=== PATIENT | female | born 1970 | race Caucasian/White ===

== ENCOUNTER → 2020-08-15 | Outpatient (CLI) | payer BC | END | disposition home or self-care (01) | LOC: RAH 14:17 | PROVIDERS: ATTEND Family Medicine | DX: N20.2 Calculus of kidney with calculus of ureter (principal); R10.9 Unspecified abdominal pain; Z87.442 Personal history of urinary calculi; R31.29 Other microscopic hematuria | CPT/HCPCS: 74176 ==